=== PATIENT | female | born 1940 | race African-American/Black ===

== ENCOUNTER 2022-04-28 07:32 | Inpatient (IN) | payer MEDICARE, OTHER ==
[~2022-04-28] VITALS: Ht 175.3 cm; Wt 84.4 kg
[2022-04-28 08:06] LABS: BASOPHILS % 0.3 % (0.0-2.0); HEMATOCRIT. 45.3 % (36.0-48.0); HEMOGLOBIN. 14.5 g/dL (12.0-16.0); LYMPHOCYTES % 11.9 % (20.0-50.0); MEAN CORPUSCULAR VOLUME 93.7 fL (81.0-99.0); MEAN PLATELET VOLUME 10.9 fl (7.4-10.4); MONOCYTES % 6.7 % (2.0-8.0); NEUTROPHILS % 81.1 % (40.0-76.0); PLATELET 157 x1000/uL (130-400); RED BLOOD CELL COUNT 4.84 mill/uL (4.2-5.4); RED CELL DISTRIBUTION WIDTH 16.1 % (11.6-14.6)
[2022-04-28 08:14] LABS: CHLORIDE 105 mEq/L (98-107)
[2022-04-28] MEDS ORDERED: VANCOMYCIN 1G PREMIX 200 ML IV ONE (08:15)
[2022-04-28] MEDS ORDERED: PIPERACILLIN/TAZ 3.375G PREMIX 50 ML IV ONE (08:15)
[2022-04-28 08:23] LABS: BETA HYDROXYBUTYRATE 1.1 mMol/L (0.0-0.3)
[2022-04-28 08:35] LABS: CLARITY URINE CLEAR (CLEAR); COLOR URINE YELLOW (YELLOW); KETONES URINE TRACE (NEGATIVE); LEUKOCYTE ESTERASE URINE NEGATIVE (NEGATIVE); NITRITE URINE NEGATIVE (NEGATIVE); OCCULT BLOOD URINE 3+ (NEGATIVE); PH URINE 5.5 (4.5-8.0); PROTEIN URINE 3+ (NEGATIVE); SPECIFIC GRAVITY URINE 1.025 (1.005-1.030); UROBILINOGEN URINE 0.2 E.U./dL (0.2-1.0)
[2022-04-28 08:57] LABS: BG BASE EXCESS -0.6 mmol/L (-2.0-2.0); BG CARBOXYHEMOGLOBIN 0.8 % (0.5-1.5); BG DEOXYHEMOGLOBIN 5.2 % (0.0-5.0); BG FRACTION INSPIRED OXYGEN 21; BG HCO3 ACT 20.6 mmol/L (22.0-26.0); BG METHEMOGLOBIN 0.6 % (0.0-1.5); BG OXYGEN SATURATION 94.7 % (92.0-98.5); BG OXYHEMOGLOBIN 93.4 % (94.0-97.0); BG PCO2 25.7 mmHg (35.0-45.0); BG PH 7.521 (7.350-7.450); BG PO2 65.5 mmHg (75.0-100.0); BG SAMPLE SITE RIGHT BRACHIAL; BG TOTAL HEMOGLOBIN 14.6 g/dL (12.0-18.0); BG VENT MODE ROOM AIR
[2022-04-28 08:57] LABS: INR 1.1; PROTHROMBIN TIME 11.4 sec (9.6-11.0)
[2022-04-28] MEDS ORDERED: SODIUM CHLORIDE 0.9% 1000ML BAG (SEPSIS BOLUS) IV ONE (09:00)
[2022-04-28] MEDS ORDERED: INSULIN LISPRO 100 UNITS/ML SUBCUT NR ×2 (12:30→22:30)
[2022-04-28] MEDS: SODIUM CHLORIDE 0.9% 1,000 ML IV SCH (17:00)
[2022-04-28] MEDS ORDERED: IPRATROPIUM/ALBUTEROL 0.5-3(2.5)MG/3ML NEB NEB PRN (17:00)
[2022-04-28] MEDS ORDERED: GUAIFENESIN 200MG/10ML SUGAR FREE UDC PO PRN (17:00)
[2022-04-28] MEDS ORDERED: MAGNESIUM/ALUMINUM HYDROXIDE/SIMETHICONE 30ML UDC PO PRN (17:00)
[2022-04-28] MEDS ORDERED: HYDROCODONE/ACETAMINOPHEN 5/325MG TABLET PO PRN (17:00)
[2022-04-28] MEDS ORDERED: ONDANSETRON HCL 4MG/2ML INJ IV PRN (17:00)
[2022-04-28] MEDS ORDERED: ACETAMINOPHEN 325MG TABLET PO PRN ×2 (17:00)
[2022-04-28] MEDS ORDERED: NALOXONE HCL 0.4MG/ML VIAL IV PRN (17:30)
[2022-04-28] MEDS ORDERED: ENOXAPARIN 30MG/0.3ML SYR SUBCUT SCH (18:00)
[2022-04-28] MEDS ORDERED: CEFEPIME 2,000 MG in DEXT 5% WATER 100 ML IV SCH (18:00)
[2022-04-28 21:30] VITALS: BP 145/66
[2022-04-28] MEDS ORDERED: DEXTROSE 50% WATER 50ML SYRINGE IV PRN (22:00)
[2022-04-28] MEDS ORDERED: INSULIN LISPRO 100 UNITS/ML SUBCUT ONE (22:30)
[2022-04-28] MEDS ORDERED: ASPI-1497 PO (22:44)
[2022-04-28] MEDS ORDERED: INSLIS SUBCUT (22:44)
[2022-04-29] VITALS: BP 144/69
[2022-04-29] MEDS ORDERED: INSULIN GLARGINE 100 UNITS/ML SUBCUT SCH (00:30)
[2022-04-29 02:47] LABS: CREATINE KINASE MB FRACTION 8.1 ng/mL (0.5-3.6)
[2022-04-29] MEDS: SODIUM CHLORIDE 0.9% 1,000 ML IV SCH (03:36)
[2022-04-29 04:00] VITALS: BP 121/60
[2022-04-29] MEDS: BLOOD SUGAR DIAGNOSTIC STRIP TEST SCH ×4 (06:21→21:14)
[2022-04-29] MEDS: INSULIN LISPRO 100 UNITS/ML SUBCUT SCH ×4 (06:27→21:46)
[2022-04-29 06:44] LABS: BASOPHILS % 0.2 % (0.0-2.0); HEMATOCRIT. 37.3 % (36.0-48.0); HEMOGLOBIN. 11.8 g/dL (12.0-16.0); MEAN CORPUSCULAR HEMOGLOBIN 29.7 pg (28.0-32.0); MEAN CORPUSCULAR VOLUME 93.8 fL (81.0-99.0); MEAN PLATELET VOLUME 10.2 fl (7.4-10.4); MONOCYTES % 12.7 % (2.0-8.0); NEUTROPHILS % 75.1 % (40.0-76.0); PLATELET 121 x1000/uL (130-400); RED BLOOD CELL COUNT 3.98 mill/uL (4.2-5.4); RED CELL DISTRIBUTION WIDTH 16.4 % (11.6-14.6)
[2022-04-29 07:06] LABS: CREATINE KINASE MB FRACTION 8.4 ng/mL (0.5-3.6); PHOSPHORUS 3.4 mg/dL (2.5-4.9); T4 FREE 0.92 ng/dL (0.76-1.46)
[2022-04-29 07:19] LABS: FOLIC ACID (FOLATE) SERUM >20 ng/mL ng/mL (>5.38); VITAMIN B12 SERUM 257 pg/mL (211-911)
[2022-04-29 08:00] VITALS: BP 129/50
[2022-04-29] MEDS: VANCOMYCIN 500MG PREMIX 100 ML IV SCH (08:00)
[2022-04-29] MEDS ORDERED: POTASSIUM CHLORIDE INJ 40 MEQ in DEXT 5% WATER 250 ML IV ONE (08:15)
[2022-04-29] MEDS: ASPIRIN 81MG TABLET PO SCH (08:41)
[2022-04-29] MEDS: ENOXAPARIN 80MG/0.8ML SYR SUBCUT SCH ×2 (08:55→21:15)
[2022-04-29] MEDS: SODIUM CHLORIDE 0.45% 1,000 ML IV SCH ×2 (09:57→21:45)
[2022-04-29] MEDS: KCL 20MEQ/100ML X 2 FOR TOTAL KCL 40MEQ/200ML IV SCH ×2 (11:33→13:41)
[2022-04-29 12:00] VITALS: BP 28/62
[2022-04-29 16:00] VITALS: BP 135/67
[2022-04-29 16:33] LABS: T4 FREE 0.86 ng/dL (0.76-1.46)
[2022-04-29] MEDS: CEFEPIME 2,000 MG in DEXT 5% WATER 100 ML IV SCH (17:42)
[2022-04-29 20:00] VITALS: BP 132/59
[2022-04-29] MEDS: INSULIN GLARGINE 100 UNITS/ML SUBCUT SCH (21:47)
[2022-04-30] VITALS: BP 148/76
[2022-04-30 04:00] VITALS: BP 174/72
[2022-04-30] MEDS: CLONIDINE 0.1MG TABLET PO PRN ×2 (04:41→21:02)
[2022-04-30] MEDS: BLOOD SUGAR DIAGNOSTIC STRIP TEST SCH ×4 (06:05→21:00)
[2022-04-30] MEDS: INSULIN LISPRO 100 UNITS/ML SUBCUT SCH ×4 (06:17→21:04)
[2022-04-30] MEDS: SODIUM CHLORIDE 0.45% 1,000 ML IV SCH ×2 (07:34→18:16)
[2022-04-30 08:00] VITALS: BP 129/68
[2022-04-30] MEDS: ASPIRIN 81MG TABLET PO SCH (09:45)
[2022-04-30] MEDS: VANCOMYCIN 500MG PREMIX 100 ML IV SCH (09:45)
[2022-04-30] MEDS: ENOXAPARIN 80MG/0.8ML SYR SUBCUT SCH ×2 (09:45→21:02)
[2022-04-30 10:43] LABS: BASOPHILS % 0.2 % (0.0-2.0); HEMATOCRIT. 35.7 % (36.0-48.0); HEMOGLOBIN. 11.4 g/dL (12.0-16.0); LYMPHOCYTES % 13.8 % (20.0-50.0); MEAN CORPUSCULAR HEMOGLOBIN 29.5 pg (28.0-32.0); MEAN CORPUSCULAR VOLUME 92.8 fL (81.0-99.0); MEAN PLATELET VOLUME 11.1 fl (7.4-10.4); MONOCYTES % 7.2 % (2.0-8.0); NEUTROPHILS % 78.8 % (40.0-76.0); PLATELET 117 x1000/uL (130-400); RED BLOOD CELL COUNT 3.85 mill/uL (4.2-5.4); RED CELL DISTRIBUTION WIDTH 16.4 % (11.6-14.6)
[2022-04-30 10:53] LABS: CHLORIDE 116 mEq/L (98-107)
[2022-04-30 11:13] LABS: CREATINE KINASE 1816 IU/L (26-192); PHOSPHORUS 2.5 mg/dL (2.5-4.9)
[2022-04-30 12:00] VITALS: BP 127/51
[2022-04-30 16:00] VITALS: BP 142/59
[2022-04-30] MEDS: CEFEPIME 2,000 MG in DEXT 5% WATER 100 ML IV SCH (18:15)
[2022-04-30 20:00] VITALS: BP 160/68
[2022-04-30] MEDS: INSULIN GLARGINE 100 UNITS/ML SUBCUT SCH (21:04)
[2022-04-30] MEDS ORDERED: KETOROLAC 10MG TABLET PO PRN (23:00)
[2022-05-01] VITALS: BP 149/64
[2022-05-01 04:00] VITALS: BP 118/79
[2022-05-01] MEDS: BLOOD SUGAR DIAGNOSTIC STRIP TEST SCH ×4 (05:52→21:16)
[2022-05-01] MEDS: INSULIN LISPRO 100 UNITS/ML SUBCUT SCH ×7 (06:47→21:35)
[2022-05-01 08:00] VITALS: BP 160/71
[2022-05-01 08:17] LABS: BASOPHILS % 0.2 % (0.0-2.0); HEMATOCRIT. 30.1 % (36.0-48.0); HEMOGLOBIN. 9.9 g/dL (12.0-16.0); LYMPHOCYTES % 10.8 % (20.0-50.0); MEAN CORPUSCULAR HEMOGLOBIN 30.1 pg (28.0-32.0); MEAN CORPUSCULAR VOLUME 91.7 fL (81.0-99.0); MEAN PLATELET VOLUME 11.8 fl (7.4-10.4); PLATELET 102 x1000/uL (130-400); RED BLOOD CELL COUNT 3.28 mill/uL (4.2-5.4); RED CELL DISTRIBUTION WIDTH 16.1 % (11.6-14.6)
[2022-05-01 08:57] LABS: PHOSPHORUS 2.9 mg/dL (2.5-4.9)
[2022-05-01] MEDS ORDERED: SODIUM CHLORIDE 0.9% 1,000 ML IV SCH (09:15)
[2022-05-01] MEDS: VANCOMYCIN 500MG PREMIX 100 ML IV SCH (09:45)
[2022-05-01] MEDS: ASPIRIN 81MG TABLET PO SCH (09:45)
[2022-05-01] MEDS ORDERED: INSULIN GLARGINE 100 UNITS/ML SUBCUT SCH (10:00)
[2022-05-01] MEDS: ENOXAPARIN 30MG/0.3ML SYR SUBCUT SCH (11:20)
[2022-05-01 12:00] VITALS: BP_SYST 139; BP_SYST 160; BP_DIAS 62; BP_DIAS 82
[2022-05-01 16:00] VITALS: BP 119/59
[2022-05-01] MEDS: CEFEPIME 2,000 MG in DEXT 5% WATER 100 ML IV SCH (17:21)
[2022-05-01 20:00] VITALS: BP 106/64
[2022-05-01] MEDS: SODIUM CHLORIDE 0.45% 1,000 ML IV SCH (21:34)
[2022-05-02] VITALS: BP 109/69
[2022-05-02 04:00] VITALS: BP 194/77
[2022-05-02] MEDS: INSULIN LISPRO 100 UNITS/ML SUBCUT SCH ×7 (06:49→21:05)
[2022-05-02] MEDS: SODIUM CHLORIDE 0.45% 1,000 ML IV SCH ×2 (06:51→16:52)
[2022-05-02] MEDS: BLOOD SUGAR DIAGNOSTIC STRIP TEST SCH ×4 (06:51→21:11)
[2022-05-02 06:52] LABS: BASOPHILS % 0.3 % (0.0-2.0); EOSINOPHILS % 0.3 % (0.0-5.0); LYMPHOCYTES % 14.2 % (20.0-50.0); MEAN CORPUSCULAR VOLUME 92.7 fL (81.0-99.0); MEAN PLATELET VOLUME 11.4 fl (7.4-10.4); MONOCYTES % 8.2 % (2.0-8.0); PLATELET 97 x1000/uL (130-400); RED BLOOD CELL COUNT 2.78 mill/uL (4.2-5.4); RED CELL DISTRIBUTION WIDTH 16.1 % (11.6-14.6)
[2022-05-02 07:04] LABS: HEMOGLOBIN. 8.3 g/dL (12.0-16.0)
[2022-05-02 07:05] LABS: HEMATOCRIT. 25.7 % (36.0-48.0)
[2022-05-02 07:27] LABS: PHOSPHORUS 3.6 mg/dL (2.5-4.9)
[2022-05-02 08:00] VITALS: BP 137/73
[2022-05-02] MEDS: ASPIRIN 81MG TABLET PO SCH (08:50)
[2022-05-02] MEDS ORDERED: VANCOMYCIN 750MG PMX (XELLIA) 150 ML IV SCH (09:00)
[2022-05-02] MEDS: ENOXAPARIN 30MG/0.3ML SYR SUBCUT SCH (09:48)
[2022-05-02] MEDS ORDERED: INSULIN GLARGINE 100 UNITS/ML SUBCUT SCH (10:00)
[2022-05-02 12:00] VITALS: BP 120/77
[2022-05-02 16:00] VITALS: BP 146/82
[2022-05-02 20:00] VITALS: BP 161/69
[2022-05-02] MEDS: CLONIDINE 0.1MG TABLET PO PRN (21:11)
[2022-05-03] VITALS: BP 135/61
[2022-05-03] MEDS: SODIUM CHLORIDE 0.45% 1,000 ML IV SCH ×2 (02:47→13:15)
[2022-05-03 04:00] VITALS: BP 145/61
[2022-05-03] MEDS: BLOOD SUGAR DIAGNOSTIC STRIP TEST SCH ×4 (06:42→20:42)
[2022-05-03] MEDS: INSULIN LISPRO 100 UNITS/ML SUBCUT SCH ×7 (06:54→20:47)
[2022-05-03 07:28] LABS: BASOPHILS % 0.3 % (0.0-2.0); EOSINOPHILS % 1.6 % (0.0-5.0); HEMATOCRIT. 25.8 % (36.0-48.0); HEMOGLOBIN. 8.4 g/dL (12.0-16.0); LYMPHOCYTES % 17.5 % (20.0-50.0); MEAN CORPUSCULAR HEMOGLOBIN 30.1 pg (28.0-32.0); MEAN CORPUSCULAR VOLUME 92.8 fL (81.0-99.0); MEAN PLATELET VOLUME 11.2 fl (7.4-10.4); MONOCYTES % 7.7 % (2.0-8.0); NEUTROPHILS % 72.9 % (40.0-76.0); PLATELET 112 x1000/uL (130-400); RED BLOOD CELL COUNT 2.78 mill/uL (4.2-5.4); RED CELL DISTRIBUTION WIDTH 16.6 % (11.6-14.6)
[2022-05-03 08:00] VITALS: BP 115/67
[2022-05-03] MEDS: ASPIRIN 81MG TABLET PO SCH (08:34)
[2022-05-03 08:59] LABS: PHOSPHORUS 3.7 mg/dL (2.5-4.9)
[2022-05-03] MEDS: INSULIN GLARGINE 100 UNITS/ML SUBCUT SCH (10:18)
[2022-05-03 12:00] VITALS: BP 134/58
[2022-05-03] MEDS: ENOXAPARIN 40MG/0.4ML SYR SUBCUT SCH (14:00)
[2022-05-03 16:00] VITALS: BP 168/74
[2022-05-03 20:00] VITALS: BP 122/59
[2022-05-04] VITALS: BP 156/71
[2022-05-04] MEDS: SODIUM CHLORIDE 0.45% 1,000 ML IV SCH ×3 (02:19→20:17)
[2022-05-04 04:00] VITALS: BP 163/66
[2022-05-04] MEDS: BLOOD SUGAR DIAGNOSTIC STRIP TEST SCH ×4 (06:20→20:54)
[2022-05-04] MEDS: INSULIN LISPRO 100 UNITS/ML SUBCUT SCH ×7 (06:20→20:55)
[2022-05-04] MEDS: CLONIDINE 0.1MG TABLET PO PRN (06:23)
[2022-05-04 06:36] LABS: HEMATOCRIT. 25.2 % (36.0-48.0); HEMOGLOBIN. 8.2 g/dL (12.0-16.0); MEAN CORPUSCULAR HEMOGLOBIN 30.1 pg (28.0-32.0); MEAN PLATELET VOLUME 10.7 fl (7.4-10.4); PLATELET 148 x1000/uL (130-400); RED BLOOD CELL COUNT 2.71 mill/uL (4.2-5.4); RED CELL DISTRIBUTION WIDTH 15.9 % (11.6-14.6)
[2022-05-04 08:00] VITALS: BP 148/78
[2022-05-04] MEDS: ASPIRIN 81MG TABLET PO SCH (08:36)
[2022-05-04] MEDS: INSULIN GLARGINE 100 UNITS/ML SUBCUT SCH (10:26)
[2022-05-04] MEDS: AMLODIPINE 5MG TABLET PO SCH (10:32)
[2022-05-04 10:44] LABS: CHLORIDE 109 mEq/L (98-107)
[2022-05-04 10:55] LABS: PHOSPHORUS 2.9 mg/dL (2.5-4.9)
[2022-05-04 12:00] VITALS: BP 153/68
[2022-05-04] MEDS: ENOXAPARIN 40MG/0.4ML SYR SUBCUT SCH (15:29)
[2022-05-04 16:00] VITALS: BP 155/67
[2022-05-04 17:16] LABS: PLATELET ESTIMATE NORMAL
[2022-05-04 20:00] VITALS: BP 125/68
[2022-05-05] VITALS: BP 139/61
[2022-05-05 04:00] VITALS: BP 145/54
[2022-05-05] MEDS: BLOOD SUGAR DIAGNOSTIC STRIP TEST SCH ×4 (06:40→20:26)
[2022-05-05] MEDS: INSULIN LISPRO 100 UNITS/ML SUBCUT SCH ×7 (06:40→20:26)
[2022-05-05] MEDS: SODIUM CHLORIDE 0.45% 1,000 ML IV SCH ×2 (06:45→15:30)
[2022-05-05 08:00] VITALS: BP 166/80
[2022-05-05] MEDS: ASPIRIN 81MG TABLET PO SCH (08:45)
[2022-05-05] MEDS: AMLODIPINE 5MG TABLET PO SCH (08:46)
[2022-05-05] MEDS: INSULIN GLARGINE 100 UNITS/ML SUBCUT SCH (09:54)
[2022-05-05 12:00] VITALS: BP 131/58
[2022-05-05] MEDS: ENOXAPARIN 40MG/0.4ML SYR SUBCUT SCH (13:22)
[2022-05-05 15:28] LABS: CHLORIDE 103 mEq/L (98-107)
[2022-05-05 16:00] VITALS: BP 146/56
[2022-05-05] MEDS ORDERED: HYDROXYZINE 25MG TABLET PO PRN (19:15)
[2022-05-05 20:00] VITALS: BP 137/70
[2022-05-06] VITALS: BP 127/70
[2022-05-06 04:00] VITALS: BP 148/67
[2022-05-06] MEDS: BLOOD SUGAR DIAGNOSTIC STRIP TEST SCH ×3 (06:09→17:30)
[2022-05-06] MEDS: INSULIN LISPRO 100 UNITS/ML SUBCUT SCH ×6 (06:15→17:38)
[2022-05-06 08:00] VITALS: BP 166/76
[2022-05-06 08:00] LABS: HEMATOCRIT. 24.4 % (36.0-48.0); HEMOGLOBIN. 8.1 g/dL (12.0-16.0); MEAN CORPUSCULAR HEMOGLOBIN 30.9 pg (28.0-32.0); MEAN CORPUSCULAR VOLUME 92.9 fL (81.0-99.0); MEAN PLATELET VOLUME 10.6 fl (7.4-10.4); PLATELET 226 x1000/uL (130-400); RED BLOOD CELL COUNT 2.63 mill/uL (4.2-5.4); RED CELL DISTRIBUTION WIDTH 15.4 % (11.6-14.6)
[2022-05-06] MEDS: ASPIRIN 81MG TABLET PO SCH (08:45)
[2022-05-06] MEDS: AMLODIPINE 5MG TABLET PO SCH (08:46)
[2022-05-06 08:47] LABS: CHLORIDE 108 mEq/L (98-107)
[2022-05-06 09:00] LABS: PHOSPHORUS 2.5 mg/dL (2.5-4.9); TOTAL IRON BINDING CAPACITY 298 ug/dL (250-450)
[2022-05-06] MEDS: INSULIN GLARGINE 100 UNITS/ML SUBCUT SCH (09:59)
[2022-05-06 12:00] VITALS: BP 127/67
[2022-05-06] MEDS: ENOXAPARIN 40MG/0.4ML SYR SUBCUT SCH (13:26)
[2022-05-06 15:41] VITALS: BP 138/63
[2022-05-06] MEDS ORDERED: INSLIS SUBCUT ×2 (15:49)
[2022-05-06] MEDS ORDERED: LANTUSUD SUBCUT (15:49)
[2022-05-06] MEDS ORDERED: AMLO5TAB88 PO (15:49)
[2022-05-06 16:00] VITALS: BP 138/63
[2022-05-07 10:18] LABS: NUCLEATED RED BLOOD CELLS 1 /100 WBC; PLATELET ESTIMATE NORMAL
== END 2022-05-06 18:23 | DRG 871 ==
LOC: ER 07:32 → 7EST 10:10 → EDBEDREQSVC 10:12 → EDBEDREQ 10:12 → SUPCPDRO 14:03 → ENRESERV 19:12
PROVIDERS: ADMIT Internal Medicine; ATTEND Internal Medicine
DX: A41.9 Sepsis, unspecified organism (principal); G93.41 Metabolic encephalopathy; I21.4 Non-ST elevation (NSTEMI) myocardial infarction; R65.21 Severe sepsis with septic shock; E87.0 Hyperosmolality and hypernatremia; E87.4 Mixed disorder of acid-base balance; M62.82 Rhabdomyolysis; N17.9 Acute kidney failure, unspecified; Z20.822 Contact with and (suspected) exposure to COVID-19; Z66 Do not resuscitate; R65.20 Severe sepsis without septic shock; E11.22 Type 2 diabetes mellitus with diabetic chronic kidney disease; I12.9 Hypertensive chronic kidney disease with stage 1 through stage 4 chronic kidney disease, or unspecified chronic kidney disease; J44.9 Chronic obstructive pulmonary disease, unspecified; E11.65 Type 2 diabetes mellitus with hyperglycemia; E78.5 Hyperlipidemia, unspecified; E87.6 Hypokalemia; F03.90 Unspecified dementia, unspecified severity, without behavioral disturbance, psychotic disturbance, mood disturbance, and anxiety; N18.9 Chronic kidney disease, unspecified; Z68.30 Body mass index [BMI] 30.0-30.9, adult; Z83.3 Family history of diabetes mellitus; Z82.49 Family history of ischemic heart disease and other diseases of the circulatory system
CPT/HCPCS: 36415; 36600; 71045; 78582; 80048; 80053; 80061; 80202; 81003; 82010; 82375; 82550; 82553; 82607; 82728; 82746; 82805; 82962; 83036; 83540; 83550; 83605; 83735; 83880; 84100; 84145; 84439; 84443; 84484; 85025; 85379; 87426; 92610; 93005; 93306; 93970; 97162; 99291; A9558; C1893; J0692; J1650; J1815; J2543; J3370; J3480; J7030; J7060; A4315